=== PATIENT | female | born 1980 | race Caucasian/White ===

== ENCOUNTER 2018-02-02 15:06 | Emergency (ER) | payer BC, OTHER ==
[2018-02-02 15:26] VITALS: BP 110/57; PULSE 78; TEMP 97.6; BMI 25.0
--- NOTE | 2018-02-02 16:53 | PDOC ---
History of Present Illness - General Chief Complaint: Pain, Acute Stated Complaint: BACK PAIN Time Seen by Provider: 02/02/18 16:05 History Source: Patient Exam Limitations: No Limitations - History of Present Illness Initial Comments: 02/02/18 16:37 37 year old woman with past medical history of dextrocardia, asthma, chronic low back pain and kidney stones who presents with 2 weeks of sudden onset low back pain that occurred while standing and has been worsening over the past 1 week and now rated a 10/10. The patient has taken some ibuprofen, motrin and lidocaine patches without relief. She notes that the pain worsens when sitting and will radiate into the legs when she bends over and when standing the pain will rise into the back. She notes that she was lifting a heavy 5 gallon water 4 weeks ago that caused her to have low back pain that resolved after 6-7 days approx 1 week before this episode of pain. 2 days ago the patient had dark urine that did not contain blood but looked dark as if dehydrated. The patient has also complained of 2 days of hard stools. [facility] Jan 23. Patient notes that pain symptoms are similar to when she had a kidney stones. She denies fever, N/V /D, abdominal pain, dysuria or hematuria. Past History - Past Medical History Allergies/Adverse Reactions: Allergies Allergy/AdvReac Type Severity Reaction Status Date / Time lactase [From [employer]] Allergy Verified 02/02/18 15:26 Home Medications: Ambulatory Orders Diazepam [Valium] 5 mg PO DAILY PRN #5 tablet MDD 1 tab 02/02/18 Asthma: Yes COPD: No CHF: No Kidney Stones: Yes Liver Disease: No - Surgical History Cardiac Surgery: No Gastric Stapling: No - Immunization History Immunization Up to Date: No - Suicide/Smoking/Psychosocial Hx Smoking History: Never smoked Have you smoked in the past 12 months: No Information on smoking cessation initiated: No Hx Alcohol Use: No Drug/Substance Use Hx: No Review of Systems - Review of Systems Able to Perform ROS?: Yes Is the patient limited Mal[place]ian proficient: No Constitutional: No: Chills, Diaphoresis, Fever HEENTM: No: Eye Pain, Tinnitus Respiratory: No: Cough, Orthopnea, Shortness of Breath Cardiac (ROS): No: Chest Pain, Lightheadedness, Palpitations ABD/GI: No: Constipated, Diarrhea, Nausea, Vomiting : No: Burning, Dysuria, Hematuria, Incontinence Musculoskeletal: Yes: See HPI, Back Pain, Muscle Pain Neurological: No: Headache, Numbness, Tingling *Physical Exam - Vital Signs Last Vital Signs Temp Pulse Resp BP Pulse Ox 97.6 F 78 18 110/57 L 100 02/02/18 15:22 02/02/18 15:22 02/02/18 15:22 02/02/18 15:22 02/02/18 15:22 - Physical Exam Comments: 02/02/18 16:59 GENERAL: Awake, alert, and fully oriented, in no acute distress HEAD: No signs of trauma, normocephalic, atraumatic EYES: EOMI, sclera anicteric, conjunctiva clear ENT: oropharynx clear without exudates. Moist mucosa NECK: Normal ROM, supple LUNGS: No distress, speaks full sentences, clear to auscultation bilaterally HEART: Regular rate and rhythm, normal S1 and S2, no murmurs, rubs or gallops, peripheral pulses normal and equal bilaterally. ABDOMEN: Soft, nontender, normoactive bowel sounds. No guarding, no rebound. No masses BACK: + L4L5 spinal tenderness to palpaiton, + L CVA tenderness, R + straight leg raise with pain in the lower lumbar region limiting raise to 30 degrees. EXTREMITIES : Normal inspection, Normal range of motion, no edema. No clubbing or cyanosis. NEUROLOGICAL: Cranial nerves II through XII grossly intact. Normal speech, no focal sensorimotor deficits SKIN: Warm, Dry, normal turgor, no rashes or lesions noted Moderate Sedation - Procedure Monitoring Vital Signs: Procedure Monitoring Vital Signs Temperature 97.6 F 02/02/18 15:22 Pulse Rate 78 02/02/18 15:22 Respiratory Rate 18 02/02/18 15:22 Blood Pressure 110/57 L 02/02/18 15:22 O2 Sat by Pulse Oximetry (%) 100 02/02/18 15:22 Medical Decision Making - Medical Decision Making 02/02/18 16:59 37 year old woman with past medical history of asthma, chronic low back pain and kidney stones who presents with 2 weeks of sudden onset low back pain that occurred while standing and has been worsening over the past 1 week and now rated a 10/10. The patient has taken some ibuprofen, motrin and lidocaine patches without relief. She notes that the pain worsens when sitting and will radiate into the legs when she bends over and when standing the pain will rise into the back. She notes that she was lifting a heavy 5 gallon water 4 weeks ago that caused her to have low back pain that resolved after 6-7 days approx 1 week before this episode of pain. 2 days ago the patient had dark urine that did not contain blood but looked dark as if dehydrated. The patient has also complained of 2 days of hard stools. [facility] Jan 23. Patient notes that pain symptoms are similar to when she had a kidney stones. She denies fever, N/V/D, abdominal pain, dysuria or hematuria. ED Course: Consider nephrolithiasis vs muscle strain vs sciatica ua, ucx 02/02/18 17:02 UA unremarkable. Will give valium and toradol and observe for pain control. Patient stable for discharge. Informed of all lab and imaging results. Given follow up instructions and strict return precautions. Patient expressed understanding and agree to plan. *DC/Admit/Observation/Transfer Diagnosis at time of Disposition: Low back pain - Discharge Dispostion Disposition: HOME Condition at time of disposition: Stable Decision to Admit order: No - Prescriptions Prescriptions: Diazepam [Valium] 5 mg PO DAILY PRN #5 tablet MDD 1 tab PRN Reason: Back Pain - Referrals Referrals: Nam Thurman MD [Staff Physician] - - Patient Instructions Additional Instructions: You were seen in the ED for complaints of low back pain. In the ED you were evaluated with labwork and you were treated with pain relievers. Your results were unremarkable. There does not appear to be an acute need for immediate hospitalization. You are advised to follow up with your Primary Care Physician within 1 week. You were given a referral to Orthopedics/Spine, and are advised to follow up within 1 week. You were given a prescription for pain medications. Please take medications as directed. Return to the ED immediately if you experience worsening back pain, inability to walk, changes in urination including retention, blood, or incontinence, fevers or leg weakness, numbness or tingling. - Post Discharge Activity Forms/Work/School Notes: Back to Work
[2018-02-02] MEDS ORDERED: diazePAM 5 MG TABLET PO ONE (17:06)
[2018-02-02] MEDS ORDERED: KETOROLAC TROMETHAMINE 10 MG TABLET PO ONE (17:07)
--- NOTE | 2018-02-02 17:14 | PDOC ---
Attending Attestation - Medical Decision Making 02/02/18 17:24 Documentation prepared by Jesus Osuna, acting as durable medical equipment repairer for Oleg Aguirre MD. <Jesus Osuna - Last Filed: 02/02/18 17:24> - Resident Resident Name: Agata Mathias - ED Attending Attestation I have performed the following: I have examined & evaluated the patient, The case was reviewed & discussed with the resident, I agree w/resident's findings & plan, Exceptions are as noted - HPI HPI: 02/02/18 17:11 The patient is a 37 year old female, with a significant PMH of asthma, chronic low back pain and kidney stones, who presents to the emergency department with 2 weeks of lower back pain. The patient states the lower back pain occurred when she lifted a 5 gallon jug of water to a water cooler. She states that the pain has progressively worsened. It radiates to the legs when she bends over and into the upper back when standing. The patient reports taking ibuprofen and lidocaine patches with minimal relief. Pt denies leg weakness or numbness. Denies incontinence. Denies saddle anesthesia. The patient states her LMP was on 01/23. The patient states her lower back pain is similar to her history of kidney stones. The patient denies chest pain, shortness of breath, headache and dizziness. Denies fever, chills, nausea, vomit, diarrhea and constipation. Denies dysuria, frequency, urgency and hematuria. Allergies: lactase - Physicial Exam PE: 02/02/18 17:13 GENERAL: Awake, alert, and fully oriented, in no acute distress. HEAD: No signs of trauma EYES: PERRLA, EOMI, sclera anicteric, conjunctiva clear ENT: Auricles normal inspection, hearing grossly normal, nares patent, oropharynx clear without exudates. Moist mucosa NECK: Nontender, no stepoffs, Normal ROM, supple, no lymphadenopathy, JVD, or masses LUNGS: Breath sounds equal, clear to auscultation bilaterally. No wheezes, and no crackles HEART: Regular rate and rhythm, normal S1 and S2, no murmurs, rubs or gallops ABDOMEN: Soft, nontender, normoactive bowel sounds. No guarding, no rebound. No masses EXTREMITIES: Normal range of motion, no edema. No clubbing or cyanosis. No cords, erythema, or tenderness NEUROLOGICAL: Cranial nerves II through XII intact. 5/5 strength and sensation in all extremities, Normal speech, normal gait, normal cerebellar function SKIN: Warm, Dry, normal turgor, no rashes or lesions noted. BACK: + R paraspinal lumbar TTP, no midline tenderness, no stepoffs, NO CVAT - Medical Decision Making 02/02/18 17:13 37 F with L lower back pain radiating down legs. Likely sciatica vs radiculopathy. Pt with no neuro deficits, ambulatory in ED without issue, making cauda equina or cord compression unlikely. Also consider kidney stone, though less likely as pt with no CVAT. No abdominal tenderness on exam to suggest intraabdominal emergency. - UA, UPT - Pain control 02/02/18 17:44 UA negative, low suspicion for stone Likely msk back pain Will DC with ortho f/u Pt is well appearing, with normal vitals. Clinically stable for DC at this time. I discussed the physical exam findings, ancillary test results and final diagnoses with the patient. I answered all of the patient's questions. The patient was satisfied with the care received and felt comfortable with the discharge plan and treatment plan. The patient agrees to follow up with the primary care physician within 24-72 hours. 02/03/18 18:18 Pt was discharged prior to UPT result Called lab, who states they never received label Spoke with pt on the phone immediately after discharge. She was asked to return for UPT to r/o ectopic or other OB-related emergency. Pt stated she would return but did not come back. Call attempted again today but with no response. Pt's exam and history consistent with msk pain. No abdominal pain to suggest pelvic pathology. Will attempt to call pt again <Oleg Aguirre - Last Filed: 02/03/18 18:23>
[2018-02-02 17:34] LABS: URINE APPEARANCE CLEAR; URINE BILIRUBIN NEGATIVE (<2.0 mg/dL); URINE COLOR COLORLESS; URINE GLUCOSE (UA) NEGATIVE (NEGATIVE); URINE KETONE NEGATIVE (NEGATIVE); URINE LEUK ESTERASE NEGATIVE (NEGATIVE); URINE NITRITE NEGATIVE (NEGATIVE); URINE PROTEIN NEGATIVE (NEGATIVE); URINE UROBILINOGEN NEGATIVE mg/dL (0.2-1.0)
[2018-02-02] MEDS ORDERED: diazePAM 5 MG TABLET ONE (17:53)
[2018-02-02] MEDS ORDERED: KETOROLAC TROMETHAMINE 15 MG/ML VIAL IM ONE (17:56)
[2018-02-02] MEDS ORDERED: KETOROLAC TROMETHAMINE 15 MG/ML VIAL ONE (17:58)
== END 2018-02-02 18:36 | disposition home or self-care (01) ==
LOC: JER 15:06
PROC: 3E0233Z Introduction of Anti-inflammatory into Muscle, Percutaneous Approach (ICD-10-PCS; principal; 2018-02-02)
DX: M54.5 Low back pain (principal); Z87.442 Personal history of urinary calculi; J45.909 Unspecified asthma, uncomplicated
CPT/HCPCS: 81003; 87086; 87186; 99281-25